=== PATIENT | male | born 1990 | race African-American/Black ===

== ENCOUNTER 2021-03-22 07:02 | Emergency (ER) | payer SELFPAY ==
--- NOTE | 2021-03-22 07:49 | ER ---
Nurse's Notes [facility] Name: Eros Negron Age: 31 yrs Sex: Male : 1990 Arrival Date: 03/22/2021 Time: 07:06 Bed 20 Private MD: Diagnosis: Encounter for screening for other viral [id number] Presentation: 03/22 07:16 Chief complaint: Patient states: Pt amb to triage for n/v x 4 days on last week. States ic1 he missed work and has been trying to go back, but needs medical clearance. States, "they think I got Covid". Pt currently denies pain or distress. AAOx4. GCS 15. Coronavirus screen: Vaccine status: Patient reports being unvaccinated. Ebola Screen: No symptoms or risks identified at this time. Initial Sepsis Screen: Does the patient meet any 2 criteria? No. Patient's initial sepsis screen is negative. Risk Assessment: Do you want to hurt yourself or someone else? Patient reports no desire to harm self or others. Onset of symptoms is unknown. 07:16 Method Of Arrival: Ambulatory ic1 07:16 Acuity: PAWAN 3 ic1 07:16 Initial Sepsis Screen: Does the patient have a suspected source of infection? No. ic1 Patient's initial sepsis screen is negative. Triage Assessment: 07:18 General: Appears in no apparent distress. comfortable, Behavior is calm, cooperative. ic1 Pain: Denies pain. Historical: - Allergies: 07:18 No Known Allergies; ic1 - Immunization history:: Adult Immunizations up to date. - Social history:: Smoking status: Patient reports the use of cigarette tobacco products, smokes one-half pack cigarettes per day. Screenin:21 Abuse screen: Denies threats or abuse. Denies injuries from another. Nutritional kilpatrick screening: No deficits noted. Tuberculosis screening: No symptoms or risk factors identified. Fall Risk None identified. Assessment: 07:21 Reassessment: pt presented to ED reporting N/V last week and was seen at this ED. pt kilpatrick reports not having any complaints. pt needing medical clearance to return to work. General: Appears in no apparent distress. Behavior is calm, cooperative. Pain: Denies pain. Vital Signs: 07:15 BP 118 / 80; Pulse 77; Resp 18; Temp 97.9(O); Pulse Ox 98% on R/A; ic1 ED Course: 07:06 Patient arrived in ED. as 07:17 Triage completed. ic1 07:18 Arm band placed on right wrist. ic1 07:21 Eros Napoles PA is PHCP. cp 07:21 Lam Meadows MD is Attending Physician. cp 07:21 Patient has correct armband on for positive identification. kilpatrick 07:21 No provider procedures requiring assistance completed. kilpatrick 07:52 COVID-19 (Coronavirus) Document "Date of Onset" if Symptomatic Sent. kilpatrick 07:56 Patient did not have IV access during this emergency room visit. kilpatrick Administered Medications: No medications were administered Outcome: 07:48 Discharge ordered by MD. cp 07:55 Discharged to home kilpatrick 07:55 Condition: good 07:55 Discharge instructions given to patient. 07:56 Patient left the ED. kilpatrick Signatures: Carli Patrick as Eros Napoles PA PA cp Au-Stager, Heather RN RN kilpatrick Zoe Price RN RN ic1
--- NOTE | 2021-03-22 07:49 | EDPHYS ---
Physician Documentation [facility] Name: Eros Negron Age: 31 yrs Sex: Male : 1990 Arrival Date: 03/22/2021 Time: 07:06 Bed 20 Private MD: ED Physician Lam Meadows HPI: 03/22 07:30 This 31 yrs old Black Male presents to ER via Ambulatory with complaints of Medical cp Clearance - asymptomatic. 07:30 release to return to work. cp 07:33 Patient reports episode of vomiting last week for 4 days causing him to call into work. cp Reports work requesting clearance to return to work. Work concerned he may have COVID. Patient reports he has not been tested for COVID-19. Historical: - Allergies: 07:18 No Known Allergies; ic1 - Immunization history:: Adult Immunizations up to date. - Social history:: Smoking status: Patient reports the use of cigarette tobacco products, smokes one-half pack cigarettes per day. ROS: 07:33 Constitutional: Negative for body aches, chills, fever, poor PO intake. cp 07:33 Eyes: Negative for injury, pain, redness, and discharge. cp 07:33 ENT: Negative for drainage from ear(s), ear pain, sore throat, difficulty swallowing, difficulty handling secretions. 07:33 Respiratory: Negative for cough, shortness of breath, wheezing. 07:33 Abdomen/GI: Negative for abdominal pain, diarrhea, constipation, active vomiting. 07:33 Skin: Negative for rash. 07:33 Neuro: Negative for headache. 07:33 All other systems are negative. Exam: 07:36 Constitutional: The patient appears in no acute distress, alert, awake, comfortable, cp non-toxic, well developed, well nourished. 07:36 Head/Face: Normocephalic, atraumatic. cp 07:36 Eyes: Periorbital structures: appear normal, Conjunctiva: normal, no exudate, no injection, Sclera: no appreciated abnormality, Lids and lashes: appear normal, bilaterally. 07:36 ENT: External ear(s): are unremarkable, Nose: is normal, Mouth: Lips: dry, Oral mucosa: dry, Posterior pharynx: Airway: no evidence of obstruction, patent. 07:36 Chest/axilla: Inspection: normal. 07:36 Cardiovascular: Rate: normal, Rhythm: regular. 07:36 Respiratory: the patient does not display signs of respiratory distress, Respirations: normal, no use of accessory muscles, no retractions, labored breathing, is not present, Breath sounds: are clear throughout, no decreased breath sounds, no stridor, no wheezing. 07:36 Abdomen/GI: Exam negative for discomfort, distension, guarding, Inspection: abdomen appears normal. Vital Signs: 07:15 BP 118 / 80; Pulse 77; Resp 18; Temp 97.9(O); Pulse Ox 98% on R/A; ic1 MDM: 07:21 Patient medically screened. cp 07:48 Data reviewed: vital signs, nurses notes. cp 07:48 Counseling: I had a detailed discussion with the patient and/or guardian regarding: the cp historical points, exam findings, and any diagnostic results supporting the discharge/admit diagnosis, to return to the emergency department if symptoms worsen or persist or if there are any questions or concerns that arise at home. ED course: VSS. Will discharge to home to continue to quarantine while awaiting results of COVID-19 test. Return to ED as needed. 03/22 07:35 Order name: COVID-19 (Coronavirus) Document "Date of Onset" if Symptomatic; Complete cp Time: 10:00 Administered Medications: No medications were administered Disposition Summary: 03/22/21 07:48 Discharge Ordered Location: Home cp Problem: new cp Symptoms: are resolved cp Condition: Stable cp Diagnosis - Encounter for screening for other viral diseases - COVID-19 cp Followup: cp - With: Private Physician - When: As needed - Reason: Worsening of condition Discharge Instructions: - Discharge Summary Sheet cp - COVID-19: What Your Test Results Mean - [facility] cp - COVID-19 Frequently Asked Questions cp - 3 Coreas Steps to Take While Waiting for Your COVID-19 Test Result - [facility] cp Forms: - Medication Reconciliation Form cp - Thank You Letter cp - Antibiotic Education cp - Prescription Opioid Use cp Addendum: 03/26/2021 08:31 Co-signature as Attending Physician, Lam Meadows MD I agree with the assessment and r n plan of care. Attestation: The patient's history, exam findings, diagnostics, and a summary of any interventions or procedures was reviewed in detail with Eros BAKER. 11:21 Addendum: Pt called and informed of positive covid result.. k b Signatures: Dispatcher [employer] EDAlondra Fong, SMOKING PIPE REPAIRER-C SMOKING PIPE REPAIRER-Lam Fay MD MD rn Page, Corey, PA PA cp Creggett, Iesha RN RN ic1
[2021-03-22 08:17] VITALS: BP 118/80; TEMP 97.9; O2SAT 98
== END 2021-03-22 07:56 | disposition home or self-care (01) ==
LOC: ER 07:02
DX: U07.1 COVID-19 (principal)
CPT/HCPCS: 99283; U0002

== ENCOUNTER 2023-01-01 07:16 | Emergency (ER) | payer SELFPAY ==
--- NOTE | 2023-01-01 07:26 | ER ---
Nurse's Notes [facility] Name: Eros Negron Age: 32 yrs Sex: Male : 1990 Arrival Date: 01/01/2023 Time: 07:16 Bed IW1 Private MD: Diagnosis: Dental caries, unspecified;Dental infection Presentation: 01/01 07:21 Chief complaint: Patient states: has two bad teeth on bottom right, fillings came, has iw been having pain for a week, worse this morning. Coronavirus screen: At this time, the client does not indicate any symptoms associated with coronavirus-19. Ebola Screen: Patient negative for fever greater than or equal to 101.5 degrees Fahrenheit, and additional compatible Ebola Virus Disease symptoms Patient denies exposure to infectious person. Patient denies travel to an Ebola-affected area in the 21 days before illness onset. No symptoms or risks identified at this time. Initial Sepsis Screen: Does the patient meet any 2 criteria? No. Patient's initial sepsis screen is negative. Does the patient have a suspected source of infection? No. Patient's initial sepsis screen is negative. Risk Assessment: Do you want to hurt yourself or someone else? Patient reports no desire to harm self or others. Onset of symptoms was December 25, 2022. 07:21 Method Of Arrival: Ambulatory iw 07:21 Acuity: PAWAN 4 iw Historical: - Allergies: 07:22 No Known Allergies; iw - Home Meds: 07:22 None [Active]; iw - PMHx: 07:22 None; iw - PSHx: 07:22 None; iw - Immunization history:: Adult Immunizations unknown. - Social history:: Smoking status: Patient reports the use of cigarette tobacco products. Screenin:25 [facility] ED Fall Risk Assessment (Adult) Score/Fall Risk Level 0 - 2 = Low Risk. Abuse iw screen: Denies threats or abuse. Denies injuries from another. Nutritional screening: No deficits noted. Tuberculosis screening: No symptoms or risk factors identified. Assessment: 07:25 General: Appears in no apparent distress. Behavior is calm, cooperative. Pain: iw Complains of pain in right jaw. Neuro: Level of Consciousness is awake, alert, obeys commands, Oriented to person, place, time, situation, Moves all extremities. Cardiovascular: Patient's skin is warm and dry. Respiratory: Respiratory effort is even, unlabored, Respiratory pattern is regular. EENT: Reports pain in right jaw. Musculoskeletal: Range of motion: intact in all extremities. Vital Signs: 07:21 BP 157 / 97; Pulse 80; Resp 16; Temp 98.4; Pulse Ox 99% on R/A; Pain 7/10; iw 07:21 Pain Scale: Adult iw ED Course: 07:17 Patient arrived in ED. rg4 07:17 Ricardo Hamilton DO is Attending Physician. ms3 07:22 Triage completed. iw 07:22 Arm band placed on. iw 07:24 Maria M Mathis, RN is Primary Nurse. iw 07:25 Fco Ayala DDS is Referral Physician. ms3 07:25 Patient has correct armband on for positive identification. Provided Education on: . iw 07:34 No provider procedures requiring assistance completed. Patient did not have IV access iw during this emergency room visit. Administered Medications: No medications were administered Medication: 07:25 VIS not applicable for this client. iw Outcome: 07:25 Discharge ordered by MD. ms3 07:33 Discharged to home ambulatory, iw 07:33 Condition: good 07:33 Discharge instructions given to patient, Instructed on discharge instructions, follow up and referral plans. medication usage, Demonstrated understanding of instructions, follow-up care, medications, Prescriptions given X 1, 07:34 Patient left the ED. iw Signatures: Maria M Mathis, RN Chio Bacon rg4 Ricardo Hamilton DO DO ms3
--- NOTE | 2023-01-01 07:26 | EDPHYS ---
Physician Documentation [facility] Name: Eros Negron Age: 32 yrs Sex: Male : 1990 Arrival Date: 01/01/2023 Time: 07:16 Bed IW1 Private MD: ED Physician Ricardo Hamilton HPI: 01/01 07:26 This 32 yrs old Black Male presents to ER via Ambulatory with complaints of Toothache. ms3 07:26 32-year-old male with no past medical history presents to the emergency department for ms3 right lower tooth pain. Patient states pain is a 7/10. Patient denies any alleviating or inciting factors. Patient denies fevers, chills, nausea, vomiting. Patient states he currently does not have a dentist.. Historical: - Allergies: 07:22 No Known Allergies; iw - Home Meds: 07:22 None [Active]; iw - PMHx: 07:22 None; iw - PSHx: 07:22 None; iw - Immunization history:: Adult Immunizations unknown. - Social history:: Smoking status: Patient reports the use of cigarette tobacco products. ROS: 07:26 Constitutional: Negative for fever, and chills. ENT: Negative for injury, pain, and ms3 discharge, Neck: Negative for injury, pain, and swelling, Cardiovascular: Negative for chest pain, and palpitations. Respiratory: Negative for shortness of breath, cough, wheezing, and pleuritic chest pain, Abdomen/GI: Negative for abdominal pain, nausea, vomiting, diarrhea, and constipation, Skin: Negative for injury, rash, and discoloration, 07:26 ENT: Positive for dental pain, Exam: 07:26 Constitutional: This is a well developed, well nourished patient who is awake, alert, ms3 and in no acute distress. Head/Face: Normocephalic, atraumatic. Eyes: Pupils equal round and reactive to light, extra-ocular motions intact. Lids and lashes normal. Conjunctiva and sclera are non-icteric and not injected. Periorbital areas with no swelling, redness, or edema. Neck: Trachea midline, no cervical lymphadenopathy. Supple, full range of motion without nuchal rigidity, or vertebral point tenderness. No Meningismus. Cardiovascular: Regular rate and rhythm with a normal S1 and S2. No gallops, murmurs, or rubs. Normal PMI, no JVD. No pulse deficits. Respiratory: Lungs have equal breath sounds bilaterally, clear to auscultation and percussion. No rales, rhonchi or wheezes noted. No increased work of breathing, no retractions or nasal flaring. Abdomen/GI: Soft, non-tender, with normal bowel sounds. No distension or tympany. No guarding or rebound. No evidence of tenderness throughout. 07:26 ENT: Dental exam: dental caries, that is moderate, specifically in the lower right second bicuspid (#29) and lower right first molar (#30), fractured teeth are noted, specifically the lower right second bicuspid (#29) and lower right first molar (#30), pain, that is moderate, specifically in the lower right second bicuspid (#29) and lower right first molar (#30), Vital Signs: 07:21 BP 157 / 97; Pulse 80; Resp 16; Temp 98.4; Pulse Ox 99% on R/A; Pain 7/10; iw 07:21 Pain Scale: Adult iw MDM: 07:25 Patient medically screened. ms3 07:26 Differential diagnosis: dental caries, gingivitis, dental abscess. Data reviewed: vital ms3 signs, nurses notes, and as a result, I will discharge patient. I considered the following discharge prescriptions or medication management in the emergency department I discussed and recommended Over The Counter medications, See prescription. Care significantly affected by the following Social Determinants of Health: Poor access to healthcare and/or lack of insurance. Counseling: I had a detailed discussion with the patient and/or guardian regarding the historical points, exam findings, and any diagnostic results supporting the discharge/admit diagnosis, the need for outpatient follow up, to return to the emergency department if symptoms worsen or persist or if there are any questions or concerns that arise at home, smoking cessation. ED course: Discussed treatment plan with patient. Patient understands agrees with plan. Patient to follow-up Dr. Ayala. All questions were answered. Return precautions discussed include worsening symptoms, or any other concerns. Administered Medications: No medications were administered Disposition Summary: 01/01/23 07:25 Discharge Ordered Notes: Location: Home ms3 Condition: Stable ms3 Diagnosis - Dental caries, unspecified ms3 - Dental infection ms3 Followup: ms3 - With: Fco Ayala DDS - When: 2 - 3 days - Reason: Recheck today's complaints Discharge Instructions: - Discharge Summary Sheet ms3 - Dental Caries, Adult ms3 - Dental Pain ms3 - Dental Pain, [id number] ms3 - Diet and Dental Disease ms3 - Dental Caries, Adult, [id number] ms3 - Preventive Dental Care, Adult ms3 Forms: - Work release form iw - Medication Reconciliation Form ms3 - Thank You Letter ms3 - Antibiotic Education ms3 - Prescription Opioid Use ms3 - Patient Portal Instructions ms3 - Leadership Thank You Letter ms3 Prescriptions: - Amoxicillin 500 mg Oral Capsule - take 1 capsule ORAL route every 8 hours for 10 days; 30 tablet; Refills: 0, ms3 Product Selection Permitted Signatures: Maria M Mathis, RN RN iw Ricardo Hamilton DO DO ms3
[2023-01-01 07:39] VITALS: BP 157/97; TEMP 98.4; O2SAT 99
== END 2023-01-01 07:34 | disposition home or self-care (01) ==
LOC: ER 07:16
DX: K04.7 Periapical abscess without sinus (principal)
CPT/HCPCS: 99283